=== PATIENT | male | born 1990 | race Caucasian/White ===

== ENCOUNTER 2021-07-01 19:58 | Emergency (ER) | payer SELFPAY ==
[2021-07-01 21:08] VITALS: BP 120/70; PULSE 110; O2SAT 97
--- NOTE | 2021-07-02 09:14 | XRAY ---
Indication: Pain following injury. Comparison: None AP/lateral left knee demonstrates tiny medial condyle/small patella bone islands and small nonspecific effusion. No other bony, articular, or soft tissue abnormalities.
== END 2021-07-01 21:19 | disposition home or self-care (01) ==
LOC: ED 19:58
DX: S83.92XA Sprain of unspecified site of left knee, initial encounter (principal); W03.XXXA Other fall on same level due to collision with another person, initial encounter; Y93.67 Activity, basketball; Y92.89 Other specified places as the place of occurrence of the external cause; Y99.8 Other external cause status
CPT/HCPCS: 73560; 99283; L1830

== ENCOUNTER 2023-04-16 06:41 | Emergency (ER) | payer OTHER ==
[2023-04-16] MEDS ORDERED: TORAdol 30 mg Injection IV ONE (07:05)
[2023-04-16] MEDS ORDERED: Sodium Chloride 0.9% 1000 ML 1,000 ML IV STA (07:05)
[2023-04-16] MEDS ORDERED: Sodium Chloride 0.9% 1000 ML 1,000 ML ONE (07:10)
[2023-04-16] MEDS ORDERED: TORAdol 30 mg Injection ONE (07:10)
--- NOTE | 2023-04-16 07:16 | ERPHSYRPT ---
- History of Present Illness Time Seen by Provider: 04/16/23 07:11 Historian: patient Exam Limitations: no limitations Patient Subjective Stated Complaint: Pt reports he has been having right lower quad pain for "a couple of weeks" intermittently. This morning when he woke up the pain was staying constant and getting worse in the right lower quad. Radiates to right lower back. Has noticed it hurts to urinate and he has been going more frequently. Triage Nursing Assessment: Pt alert and oriented x3. No apparent respiratory distress. Ambulated to ED cot without difficulty. Skin w/p/d. Abdomen soft/minimal tenderness with palpation in right lower quad. Active bowel sounds in all four quads. Denies any hx of kidney stones, reports he has his appendix still. Rates pain 05/02. Physician History: Pt reports he has been having right lower quad pain for "a couple of weeks" intermittently. This morning when he woke up the pain was staying constant and getting worse in the right lower quad. Radiates to right lower back. Has noticed it hurts to urinate and he has been going more frequently. Timing/Duration: day(s) Activities at Onset: none Quality: cramping, throbbing Abdominal Pain Onset Location: RLQ, flank Pain Radiation: flank Severity of Pain-Max: moderate Severity of Pain-Current: moderate Associated Symptoms: No loss of appetite, No nausea, No testicular pain, No vomiting, No weakness Previous symptoms: no prior history Body Map: 1 - abdominal pain Allergies/Adverse Reactions: No Known Drug Allergies Allergy (Unverified 04/16/23 06:52) Home Medications: PARoxetine HCL [Paroxetine HCl] 40 mg PO DAILY 04/16/23 [History] hydrOXYzine HCL [Hydroxyzine HCl] 10 mg PO DAILY PRN 04/16/23 [History] Hx Tetanus, Diphtheria Vaccination/Date Given: Yes Hx Influenza Vaccination/Date Given: No Hx Pneumococcal Vaccination/Date Given: No Travel Risk - International Travel Have you traveled outside of the country in past 3 weeks: No - Coronavirus Screening Are you exhibiting any of the following symptoms?: No Close contact with a COVID-19 positive Pt in past 14-21 Days: No - Vaccine Status Have you recieved a Covid-19 vaccination: Yes Cap Sizer: Taptera - Review of Systems Constitutional: No Fever, No Chills Eyes: No Symptoms Ears, Nose, & Throat: No Symptoms Respiratory: No Cough, No Dyspnea Cardiac: No Chest Pain, No Edema, No Syncope Abdominal/Gastrointestinal: Abdominal Pain, No Nausea, No Vomiting, No Diarrhea, No Appetite Changes Genitourinary Symptoms: No Dysuria Musculoskeletal: No Back Pain, No Neck Pain Skin: No Rash Neurological: No Dizziness, No Focal Weakness, No Sensory Changes Psychological: No Symptoms Endocrine: No Symptoms All Other Systems: Reviewed and Negative - Past Medical History Pertinent Past Medical History: Yes Neurological History: Seizures ENT History: No Pertinent History Cardiac History: No Pertinent History Respiratory History: No Pertinent History Endocrine Medical History: No Pertinent History Musculoskeletal History: Other GI Medical History: No Pertinent History History: No Pertinent History Psycho-Social History: Depression Male Reproductive Disorders: No Pertinent History Other Medical History: left knee meniscal tears - Past Surgical History Past Surgical History: Yes Neuro Surgical History: No Pertinent History Cardiac: No Pertinent History Respiratory: No Pertinent History Gastrointestinal: No Pertinent History Genitourinary: No Pertinent History Musculoskeletal: Orthopedic Surgery Male Surgical History: No Pertinent History Other Surgical History: left knee 2021 & 2022 - Social History Smoking Status: Never smoker Exposure to second hand smoke: No Drug Use: none Patient Lives Alone: Yes - Nursing Vital Signs Nursing Vital Signs: Initial Vital Signs O2 Sat by Pulse Oximetry 94 L 04/16/23 07:27 Pain Scale Pain Intensity 7 - Physical Exam General Appearance: no apparent distress, alert Eye Exam: PERRL/EOMI, eyes nml inspection Ears, Nose, Throat Exam: normal ENT inspection, pharynx normal, moist mucous membranes Neck Exam: normal inspection, non-tender, supple, full range of motion Respiratory Exam: normal breath sounds, lungs clear, No respiratory distress Cardiovascular Exam: regular rate/rhythm, normal heart sounds Gastrointestinal/Abdomen Exam: soft, rebound (RLQ), No tenderness, No mass Male Genitalia Exam: normal genitalia Back Exam: normal inspection, normal range of motion, No CVA tenderness, No vertebral tenderness Extremity Exam: normal inspection, normal range of motion, pelvis stable Neurologic Exam: alert, oriented x 3, cooperative, normal mood/affect, nml cerebellar function, sensation nml, No motor deficits Skin Exam: normal color, warm, dry - Course Nursing assessment & vital signs reviewed: Yes Ordered Tests: Active Orders 24 hr Category Date Time Status ABDOMEN AND PELVIS W/0 CONTRAS [CT] Stat Exams 04/16/23 07:06 Completed AMYLASE Stat Lab 04/16/23 06:50 Completed CBC W DIFF Stat Lab 04/16/23 06:50 Completed CMP Stat Lab 04/16/23 06:50 Completed CULTURE,URINE Stat Lab 04/16/23 07:12 Received UA W/RFX UR CULTURE Stat Lab 04/16/23 07:12 Completed Urine Triage Profile Stat Lab 04/16/23 07:12 Received Medication Summary Discontinued Medications Generic Name Dose Route Start Last Admin Trade Name Jeison PRN Reason Stop Dose Admin Sodium Chloride 1,000 mls @ 999 mls/hr 04/16/23 07:05 04/16/23 07:18 Sodium Chloride 0.9% 1000 Ml IV 04/16/23 08:05 999 mls/hr .Q1H1M STA Administration Sodium Chloride Confirm 04/16/23 07:10 Sodium Chloride 0.9% 1000 Ml Administered 04/16/23 07:11 Dose 1,000 mls @ ud .ROUTE .STK-MED ONE Ketorolac Tromethamine 30 mg 04/16/23 07:05 04/16/23 07:18 Ketorolac Tromethamine 30 Mg/Ml Inj IV 04/16/23 07:06 30 mg STAT ONE Administration Ketorolac Tromethamine Confirm 04/16/23 07:10 Ketorolac Tromethamine 30 Mg/Ml Inj Administered 04/16/23 07:11 Dose 30 mg .ROUTE .STK-MED ONE Morphine Sulfate 4 mg 04/16/23 08:09 Morphine Sulfate 4 Mg/Ml Injection IV 04/16/23 08:10 STAT ONE Lab/Rad Data: Laboratory Result Diagrams 04/16/23 06:50 04/16/23 06:50 Laboratory Results 04/16/23 04/16/23 04/16/23 Range/Units 07:12 06:50 06:50 WBC 6.6 (4.0-10.5) x10^3/uL RBC 5.22 (4.1-5.6) x10^6/uL Hgb 15.6 (12.5-18.0) g/dL Hct 45.5 (42-50) % MCV 87.2 (78-100) fL MCH 29.9 (26-32) pg MCHC 34.3 (32-36) g/dL RDW 12.7 (11.5-14.0) % Plt Count 223 (150-450) x10^3/uL MPV 8.2 (7.5-11.0) fL Gran % 58.0 (36.0-66.0) % Immature Gran % (Auto) 0.8 H (0.00-0.4) % Nucleat RBC Rel Count 0.0 (0.00-0.1) % Eos # (Auto) 0.37 (0-0.5) x10^3/uL Immature Gran # (Auto) 0.05 H (0.00-0.03) x10^3u/L Absolute Lymphs (auto) 1.69 (1.0-4.6) x10^3/uL Absolute Monos (auto) 0.58 (0.0-1.3) x10^3/uL Absolute Nucleated RBC 0.00 (0.00-0.01) x10^3u/L Lymphocytes % 25.6 (24.0-44.0) % Monocytes % 8.8 (0.0-12.0) % Eosinophils % 5.6 H (0.00-5.0) % Basophils % 1.2 (0.0-0.4) % Absolute Granulocytes 3.82 (1.4-6.9) x10^3/uL Basophils # 0.08 (0-0.4) x10^3/uL Sodium 141 (137-145) mmol/L Potassium 4.4 (3.5-5.1) mmol/L Chloride 102 (98-107) mmol/L Carbon Dioxide 26 (22-30) mmol/L Anion Gap 17.3 H (5-15) MEQ/L BUN 17 (9-20) mg/dL Creatinine 1.39 H (0.66-1.25) mg/dL Estimated GFR > 60.0 ML/MIN Glucose 92 (74-106) mg/dL Calcium 9.1 (8.4-10.2) mg/dL Total Bilirubin 0.70 (0.2-1.3) mg/dL AST 29 (17-59) U/L ALT 33 (0-50) U/L Alkaline Phosphatase 87 (38-126) U/L Serum Total Protein 8.4 H (6.3-8.2) g/dL Albumin 4.7 (3.5-5.0) g/dL Amylase 73 (30-110) U/L Urine Color Dark Yellow (Yellow) Urine Appearance Cloudy A (Clear) Urine pH 5.0 (4.6-8.0) Ur Specific [place] >=1.030 A (1.005-1.030) Urine Protein 100 A (Negative) Urine Glucose (UA) Negative (Negative) mg/dL Urine Ketones Trace A (Negative) Urine Blood Large A (Negative) Urine Nitrite Negative (Negative) Urine Bilirubin Negative (Negative) Urine Urobilinogen 1.0 A (0.2) mg/dL Ur Leukocyte Esterase Trace A (Negative) U Hyaline Cast (Auto) 3-5 A (0-2) /LPF Urine Microscopic RBC >100 A (0-5) /HPF Urine Microscopic WBC 3-5 (0-5) /HPF Ur Epithelial Cells None Seen (None Seen) /HPF Urine Bacteria None Seen (None Seen) /HPF Urine Culture Reflexed YES (NO) CLINICAL HISTORY:right lower side abdominal pain COMPARISON:None? TECHNIQUES:Axial sections of CT abdomen and pelvis were obtained without administration of intravenous contrast. Reconstructed coronal and sagittal images were also acquired? FINDINGS: Right distal ureteric calculus measuring approximately 4 mm in size resulting in mild hydronephrosis and hydroureter. Mild right-sided perinephric and periureteric fat stranding is also noted. Both kidneys are normal in size and shape. No discrete left-sided renal calculus or evidence of obstructive uropathy. The urinary bladder is suboptimally distended. The prostate gland appears unremarkable. The liver is normal in size and attenuation. No discrete focal hepatic lesion is seen. No definite evidence of intrahepatic biliary dilatation. Gallbladder is normally distended. No definite evidence of cholelithiasis or acute cholecystitis. The spleen, pancreas, and bilateral adrenal glands appear unremarkable. The appendix is separately visualized. No definite evidence of acute appendicitis. Visualized large and small bowel loops appear grossly unremarkable. The stomach appears grossly unremarkable. A few subcentimeter para-aortic lymph nodes are seen. No ascites or pneumoperitoneum. PatientID: [id number] Patient Name: ZAHRA MELÉNDEZ Exam Date: 04/16/2023 Procedure: ABDOMEN AND PELVIS W/0 CO - Progress Progress: improved Progress Note: 04/16/23 08:16 Patient is informed about following, "In your ER visit, we did a CAT scan on your abdomen because of your abdominal pain and we found that you have a 4 mm kidney stone at the end of your ureter which is almost going to pass into your bladder. You are advised to strain your urine and if you find a stone please bring it in the specimen cup we have provided to your labs. You should follow-up with your primary care physician in next 3 to 7 days for further evaluation if necessary they will be able to get your lab reports and kidney stone evaluation and that may help you for future prevention of problem." Counseled pt/family regarding: lab results, diagnosis, need for follow-up, rad results Medical Desision Making - Diagnostic Testing Diagnostic test were ordered, analyzed, and reviewed by me: Yes Radiological Interpretation: Discussed w/ radiologist, Teleradiologist Report - Risk of complications The pt has a mod risk of morbidity or mortality based on: Need for prescription drug management, Need for minor surgical intervention in patient with know risk factors - Departure Departure Disposition: Home Clinical Impression: Right distal ureteral calculus Condition: Stable Critical Care Time: Yes Critical Care Time(excluding separately billable procedures): Critical 30-74 mins Referrals: DOCTOR,NO FAMILY [Primary Care Provider] - Follow up/PCP as directed Instructions: Kidney stones in adults, Kidney Stones (DC), Kidney Stone Diet, How to Strain Your Urine Additional Instructions: In your ER visit, we did a CAT scan on your abdomen because of your abdominal pain and we found that you have a 4 mm kidney stone at the end of your ureter which is almost going to pass into your bladder. You are advised to strain your urine and if you find a stone please bring it in the specimen cup we have provided to your labs. You should follow-up with your primary care physician in next 3 to 7 days for further evaluation if necessary they will be able to get your lab reports and kidney stone evaluation and that may help you for future prevention of problem. Discharge/Care Plan ZAHRA MELÉNDEZ was seen on 04/16/23 in the Emergency Room. The patient was counseled regarding Diagnosis,Lab results, Imaging studies, need for follow up and when to return to the Emergency Room. Prescriptions given: Discharge Note I have spoken with the patient and/or caregivers. I have explained the patient's condition, diagnosis and treatment plan based on the information available to me at this time. I have answered the patient's and/or caregiver's questions and addressed any concerns. The patient and/or caregivers have as good understanding of the patient's diagnosis, condition and treatment plan as can be expected at this point. The vital signs have been stable. The patient's condition is stable and appropriate for discharge from the emergency department. The patient will pursue further outpatient evaluation with the primary care physician or other designated or consulting physician as outlined in the discharge instructions. The patient and/or caregivers are agreeable to this plan of care and follow-up instructions have been explained in detail. The patient and/or caregivers have received these instruction. The patient/and or caregivers are aware that any significant change in condition or worsening of symptoms should prompt an immediate return to this or the closest emergency department or call 911. MEDHATZAHRA was seen on 04/16/23 n the Emergency Room. At that time you were treated for an emergent condition, during your visit Laboratory, Radiology and/or other procedures may have been ordered. It is very important that you follow-up with your Primary Care Physician NO FAMILY DOCTOR within the next 24- 48 hours to review your Emergency Room visit and the final results of testing that was ordered. Some test results such as Urine Cultures, Blood Cultures, and other cultures if ordered will not be finalized for 24-48 hours. If you do not have a Primary Care Provider please call the medical records department at [phone] to obtain a copy of your results or you may sign into our patient portal to obtain these results by visiting us @ [email or web address] and completing the following steps: 1. Click on the Patient Portal link 2. Click the Patient Self Enrollment Link to complete the enrollment form and entering your 3. Once the enrollment form is completed you will receive an email with a temporary ID and password at the email address you provided. 4. Next choose a user name and password. Your user name must be at least 4 characters long and your password must be at least 4 characters long. 5. Choose a security question from the list and provide your answer to the q uestion. If you already have signed into the Health Portal you may access your Health Care Information 16/05 by the following steps: 1. Login to our website @ [email or web address] 2. Enter your original user name and password. FAQS The [facility] Health Portal is an online tool that contains your Lab Results, Radiology Reports, Visit History, Discharge Instructions and Health Summary Lab and Radiology Results will not be available for 72 hours on the portal. The Portal is a secure site, passwords are encryted and URLs are re-written so they cannot be copied and pasted. You and authorized family members are the only ones who can access your Portal. Also there is a timeout feature that protects your information if you leave the Portal page open. If you have technical difficulty please use the Contact Us link on the page this will allow you to submit any questions you have regarding the Portal or you may contact the Medical Record Department at [phone]. Prescriptions: Smz/Tmp Ds Tablet [Bactrim Ds Tablet] 1 udtab PO BID #20 tablet Tamsulosin HCl 0.4 mg [Flomax 0.4 MG] 0.4 mg PO DAILY 15 Days #15 cap Naproxen 375 mg [Naprosyn 375 mg] 375 mg PO Q8H #30 tablet Orphenadrine Citrate 100 mg [Norflex 100 MG Tablet] 100 mg PO BID #20 tab
[2023-04-16 07:31] LABS: Absolute Neutrophil Ct (ANC) 3.82 x10^3/uL (1.4-6.9); BASOPHIL % 1.2 % (0.0-0.4); Basophil (Absolute #) 0.08 x10^3/uL (0-0.4); Eosinophil % 5.6 % (0.00-5.0); Eosinophil (Absolute #) 0.37 x10^3/uL (0-0.5); Hematocrit 45.5 % (42-50); Hemoglobin 15.6 g/dL (12.5-18.0); IMMATURE GRAN # 0.05 x10^3u/L (0.00-0.03); IMMATURE GRAN % 0.8 % (0.00-0.4); Lymphocyte (Absolute #) 1.69 x10^3/uL (1.0-4.6); Lymphocytes % 25.6 % (24.0-44.0); Mean Cell Volume 87.2 fL (78-100); Mean Corpuscular Hemoglobin 29.9 pg (26-32); Mean Corpuscular Hgb Concent. 34.3 g/dL (32-36); Mean Platelet Volume 8.2 fL (7.5-11.0); Monocyte (Absolute #) 0.58 x10^3/uL (0.0-1.3); Monocytes % 8.8 % (0.0-12.0); Platelet Count 223 x10^3/uL (150-450); Red Blood Count 5.22 x10^6/uL (4.1-5.6); Red Cell Distribution Width 12.7 % (11.5-14.0); White Blood Count 6.6 x10^3/uL (4.0-10.5)
[2023-04-16 07:37] LABS: Appearance Cloudy (Clear); Bacteria None Seen /HPF (None Seen); Bilirubin Negative (Negative); Blood Large (Negative); Epithelial Cells None Seen /HPF (None Seen); Glucose, Urine Negative (Negative); Ketones Trace (Negative); Leukocyte Esterase Trace (Negative); Nitrite Negative (Negative); Protein,Urine Dip 100 (Negative); RBC >100 /HPF (0-5); Specific Gravity >=1.030 (1.005-1.030)
[2023-04-16 07:47] LABS: ALBUMIN 4.7 g/dL (3.5-5.0); ALKALINE PHOSPHATASE 87 U/L (38-126); AMYLASE 73 U/L (30-110); ANION GAP 17.3 MEQ/L (5-15); BLOOD UREA NITROGEN 17 mg/dL (9-20); CHLORIDE 102 mmol/L (98-107); Calcium 9.1 mg/dL (8.4-10.2); Carbon Dioxide 26 mmol/L (22-30); Creatinine 1 1.39 mg/dL (0.66-1.25); EST GLOMERULAR FILTRATION RATE > 60.0 ML/MIN; Glucose 92 mg/dL (74-106); Potassium 4.4 mmol/L (3.5-5.1); SGOT/AST 29 U/L (17-59); SGPT/ALT 33 U/L (0-50); SODIUM 141 mmol/L (137-145); Total Protein 8.4 g/dL (6.3-8.2)
--- NOTE | 2023-04-16 07:55 | XRAY ---
CLINICAL HISTORY:right lower side abdominal pain COMPARISON:None; TECHNIQUES:Axial sections of CT abdomen and pelvis were obtained without administration of intravenous contrast. Reconstructed coronal and sagittal images were also acquired; FINDINGS: Right distal ureteric calculus measuring approximately 4 mm in size resulting in mild hydronephrosis and hydroureter. Mild right-sided perinephric and periureteric fat stranding is also noted. Both kidneys are normal in size and shape. No discrete left-sided renal calculus or evidence of obstructive uropathy. The urinary bladder is suboptimally distended. The prostate gland appears unremarkable. The liver is normal in size and attenuation. No discrete focal hepatic lesion is seen. No definite evidence of intrahepatic biliary dilatation. Gallbladder is normally distended. No definite evidence of cholelithiasis or acute cholecystitis. The spleen, pancreas, and bilateral adrenal glands appear unremarkable. The appendix is separately visualized. No definite evidence of acute appendicitis. Visualized large and small bowel loops appear grossly unremarkable. The stomach appears grossly unremarkable. A few subcentimeter para-aortic lymph nodes are seen. No ascites or pneumoperitoneum. Heart is normal in size. No pericardial effusion. Atelectatic changes in the lung bases. No acute bony abnormality. Few focal sclerotic areas are seen in the acetabulum and proximal femoral head bilaterally, likely representing bone islands. IMPRESSION: 4 mm right distal ureteric calculus resulting in mild hydronephrosis and hydroureter. Mild right-sided perinephric and periureteric fat stranding. No other significant abnormality is noted. [facility] ER was called at [phone] at 7:51 AM EST, 04/16/2023 and results were verbally communicated to Dr. Reyes. Electronically Signed by: Oscar Bowles MD. (04/16/2023 06:53:04 [employer])
[2023-04-16 08:00] LABS: ADD URINE CULTURE? YES (NO)
[2023-04-16 08:03] VITALS: O2SAT 97
[2023-04-16 08:06] LABS: Amphetamine,Urine NEGATIVE (NEGATIVE); Barbiturate,Urine NEGATIVE (NEGATIVE); Benzodiazepine,Urine NEGATIVE (NEGATIVE); Cocaine,Urine NEGATIVE (NEGATIVE); Methadone,Urine NEGATIVE (NEGATIVE); Opiate,Urine NEGATIVE (NEGATIVE); PCP,Urine NEGATIVE (NEGATIVE); THC,Urine NEGATIVE (NEGATIVE)
[2023-04-16] MEDS ORDERED: Norflex 60 MG/2 ML IV ONE (08:10)
[2023-04-16] MEDS ORDERED: Flomax 0.4 MG PO STA (08:10)
[2023-04-16] MEDS ORDERED: MORPHINE SULFATE 4 MG INJ ONE (08:15)
[2023-04-16] MEDS ORDERED: Flomax 0.4 MG ONE (08:15)
[2023-04-16] MEDS: MORPHINE SULFATE 4 MG INJ IV ONE ×2 (08:17→08:56)
[2023-04-16] MEDS ORDERED: Norflex 100 MG Tablet PO ONE ×2 (08:24→08:26)
[2023-04-16 09:12] VITALS: BP 112/76
== END 2023-04-16 09:18 | disposition home or self-care (01) ==
LOC: ED 06:41
DX: N13.2 Hydronephrosis with renal and ureteral calculous obstruction (principal); R10.31 Right lower quadrant pain; R30.0 Dysuria; Z79.899 Other long term (current) drug therapy
CPT/HCPCS: 36415; 74176; 80053; 80307; 81001; 82150; 85025; 87086; 96360; 96374; 99284; 99291; J1885; J2270; A9270-GY

== ENCOUNTER 2024-02-02 09:28 | Day surgery (SDC) | payer OTHER ==
[~2024-02-02 09:28] MED LIST: Sensorcaine 0.25% 10 ML ONE
[2024-02-02] MEDS: Lactated Ringers 1,000 ML IV SCH (09:48)
[2024-02-02] MEDS: MEFOXIN 2 GM PREMIX** 2 GM/50 ML ML IV SCH (09:48)
[2024-02-02] MEDS: Pepcid 20 MG PO ONE (09:48)
[2024-02-02 09:53] VITALS: RESP 16
[2024-02-02 10:29] LABS: Calcium 9.4 mg/dL (8.4-10.2); Creatinine 1 1.13 mg/dL (0.66-1.25); Potassium 4.5 mmol/L (3.5-5.1)
[2024-02-02] MEDS ORDERED: ROCURONIUM BROMIDE IV ONE (12:29)
[2024-02-02] MEDS ORDERED: Decadron 4 MG INJ ONE (12:29)
[2024-02-02] MEDS ORDERED: Zofran 4 MG/2 ML VIAL ONE ×2 (12:29→13:33)
[2024-02-02] MEDS ORDERED: SUBLIMAZE 100 MCG/2 ML ONE ×2 (12:33→13:33)
[2024-02-02] MEDS ORDERED: Sensorcaine 0.25% 10 ML ONE (12:35)
[2024-02-02] MEDS ORDERED: Lactated Ringers 1,000 ML IV ONE (12:42)
[2024-02-02] MEDS ORDERED: TORAdol 30 mg Injection ONE (12:55)
[2024-02-02] MEDS ORDERED: BRIDION 200MG/2ML IV ONE (12:55)
[2024-02-02] MEDS ORDERED: DILAUDID 2 MG INJECTION ONE (13:18)
[2024-02-02] MEDS ORDERED: DIPRIVAN 200 MG/20 ML IV ONE (13:34)
[2024-02-02] MEDS ORDERED: Hydromorphone 1 mg/ml Injection ONE (13:50)
[2024-02-02 15:08] VITALS: BP 120/74; PULSE 90; TEMP 97.4; O2SAT 95
--- NOTE | 2024-02-02 15:32 | OP ---
SURGERY DATE/TIME: 02/02/2024 1151 PREOPERATIVE DIAGNOSIS: Chronic cholecystitis/cholelithiasis. POSTOPERATIVE DIAGNOSES: Chronic cholecystitis/cholelithiasis. PROCEDURE: Laparoscopic cholecystectomy. SURGEON: Sin Rodríguez M.D. ANESTHESIA: General. SPECIMEN: Gallbladder. QUANTITATIVE BLOOD LOSS: Minimal. CONDITION: Patient condition stable. COMPLICATIONS: None. HISTORY: The patient is a 33-year-old male presents with episodic right upper quadrant abdominal pain. Imaging showing gallstones. Discussed with the patient the risks of infection, bleeding, injury to major structure, hernia, failure to resolve symptoms. He elected to proceed with surgery. FINDINGS: Some chronic inflammation, a critical view obtained. DESCRIPTION OF PROCEDURE: The patient is brought to the operating room. General anesthesia induced, routinely positioned, prepped and draped. Time out performed. He received preoperative antibiotic. The 5 mm Optiview trocar placed in left upper quadrant and pneumoperitoneum established. An 11 mm right paramedian trocar placed and two additional 5 mm trocars were placed in the right upper quadrant. Patient positioned. The gallbladder is then retracted. The cystic duct and cystic artery were dissected out. The critical view was clearly obtained. There was just some mild chronic inflammation and thickening in the triangle. The cystic duct taken three down with 5 mm metal clip appliers, cystic artery taken with 5 mm metal clip appliers, both divided. The gallbladder is taken off the liver bed. A small hole was made in the gallbladder. Just a few small stones did spill but the gallbladder is placed in a specimen bag and removed through the 11 trocar site. Right upper quadrant re-inspected. The stones irrigated and suctioned out. There is good hemostasis. Clips are in good position. The 11 trocar closed with 0 Vicryl interrupted suture passer. Trocars removed. Marcaine had been injected at all port sites. The skin is closed with 4-0 Vicryl suture. Steri-Strips and sterile dressings applied. All counts were correct. The patient tolerated the procedure well. Extubated and taken to recovery in stable condition.
== END 2024-02-02 15:17 | disposition home or self-care (01) ==
LOC: SDC 09:28
PROVIDERS: ATTEND Surgery
DX: K80.10 Calculus of gallbladder with chronic cholecystitis without obstruction (principal)
CPT/HCPCS: 36415; 80048; J0694; J1100; J1170; J1885; J2405; J2704; J3010; A9270-GY